=== PATIENT | male | born 1970 ===

== ENCOUNTER → 2021-03-15 | Outpatient (CLI) | payer BC ==
--- NOTE | 2021-03-15 16:16 | KCIC ---
EXAM: Lumbar spine MRI without contrast. HISTORY: Acute back pain. TECHNIQUE: Multiplanar, multisequence magnetic resonance imaging of the lumbar spine was performed wi thout contrast. COMPARISON: Radiographs dated 03/12/2021. FINDINGS: There is minimal retrolisthesis of L2 on L3 and L3 on L4 and L4 and L5. There is minimal matt mbar scoliosis. There is degenerative endplate remodeling with disc space narrowing and osteophytosis throughout the lower thoracic and lumbar spine, with preservation of the disc spaces at T12-L1 and L 1-L2. There are multiple endplate Schmorl's nodes. There is disc desiccation at multiple levels. Ther e are few osseous hemangiomas. There is no fracture or suspicious osseous lesion. The conus terminate s at L1. There is a small simple left renal cyst. Follow-up isn't routinely performed for simple cyst s. At L1-L2, there is no stenosis. At L2-L3, there is a shallow broad-based posterior central to right lateral recess disc protrusion an d inferior right lateral recess extrusion. The extruded disc material extends approximately 1.7 cm in ferior to the disc space and measures approximately 10 mm transversely by 6 mm anteroposteriorly. Thi s is superimposed on a disc bulge and endplate remodeling. There is mild bilateral facet arthropathy. There is prominent dorsal epidural fat. There is slight retrolisthesis. There is a posterior annular tear. There is mild right foraminal stenosis. There is mild central canal stenosis and effacement of the right lateral recess with abutment the traversing right nerve roots. At L3-L4, there is a posterior central disc protrusion and annular tear with 6 mm inferior central di sc extrusion superimposed on a disc bulge and endplate remodeling. There is mild bilateral facet arth ropathy. There is slight retrolisthesis. There is prominent dorsal epidural fat. There is mild bilate ral foraminal stenosis with abutment of the exiting right greater than left L3 nerve roots. There is mild central canal stenosis. At L4-L5, there is a shallow broad-based posterior central disc protrusion and annular tear and there are broad-based left greater than right foraminal to extra dural disc protrusions and annular tears superimposed on a disc bulge and endplate osteophytosis. There is mild right facet arthropathy. There is slight retrolisthesis. There is mild bilateral foraminal stenosis with abutment the exiting left greater than right L4 nerve roots. There is minimal central canal stenosis. At L5-S1, there is a shallow left lateral recess to foraminal disc protrusion and annular tear superi mposed on a left lateral predominant disc bulge and endplate osteophytosis. There is mild left facet arthropathy. There is mild left foraminal stenosis with abutment the exiting left L5 nerve root. Ther e is narrowing of the left lateral recess and near abutment the traversing left S1 nerve root. IMPRESSION: 1. Multilevel degenerative change involving the lumbar spine, described in detail above. This include s a posterior central to right lateral recess disc protrusion and inferior right lateral recess extru alton at L2-L3 which contributes to mild right foraminal and central canal stenosis and effacement of the right lateral recess with abutment the traversing right nerve roots. There is also degenerative c hange resulting in mild lateral foraminal and central canal stenosis at L3-L4, mild bilateral foramin al and minimal central canal stenosis at L4-5 and mild left foraminal and left lateral recess stenosi s at L5-S1. 2. Mild scoliosis and minimal multilevel listhesis. Electronically signed by: Sumaya Posada MD (03/15/2021 4:14 PM) [id number]
== END ==
LOC: KCIC MRI 12:46
PROVIDERS: ATTEND Physician Assistant Medical
DX: M47.817 Spondylosis without myelopathy or radiculopathy, lumbosacral region (principal); M51.27 Other intervertebral disc displacement, lumbosacral region; M43.16 Spondylolisthesis, lumbar region; M41.86 Other forms of scoliosis, lumbar region; M48.07 Spinal stenosis, lumbosacral region; M48.05 Spinal stenosis, thoracolumbar region; M25.78 Osteophyte, vertebrae; D18.09 Hemangioma of other sites; M54.41 Lumbago with sciatica, right side
CPT/HCPCS: 72148